=== PATIENT | male | born 1950 | race Caucasian/White ===

== ENCOUNTER → 2020-05-25 10:27 | Outpatient (BNVA) | payer MEDICARE, SELFPAY | PROVIDERS: Referring Provider Nurse Practitioner Family; Visit Provider Podiatrist Foot & Ankle Surgery | DX: L97.512 Non-pressure chronic ulcer of other part of right foot with fat layer exposed (principal); I73.9 Peripheral vascular disease, unspecified; L60.3 Nail dystrophy; M20.42 Other hammer toe(s) (acquired), left foot; M20.41 Other hammer toe(s) (acquired), right foot; M19.90 Unspecified osteoarthritis, unspecified site; M79.671 Pain in right foot | CPT/HCPCS: 73630 ==

== ENCOUNTER 2020-07-13 08:26 | Emergency (ER) | payer MEDICARE, SELFPAY ==
[2020-07-13] VITALS (8 sets, daily range): BP systolic 125–157; BP diastolic 71–76; PULSE 86–112; RESP 16–20; TEMP 36.7–37.1; O2SAT 76–96; BMI 33.0
--- NOTE | 2020-07-13 08:41 | XR_ITS ---
WS: [id number] Right hip, AP and frog leg views, AP pelvis, 07/13/2020 Clinical Data: trauma Comparison: None. Findings: There is a fracture of the right pubic symphysis without significant displacement. The right hip show s arthritic narrowing but there are no right hip fractures. There is an intramedullary bon in the pro ximal left femur. No left hip fractures are seen. The SI joints are normal. XR/XR hip RT 2-3V wo/w pel* [id number] Impression: 1. Fracture of right pubic symphysis. 2. Negative for right hip fracture.
--- NOTE | 2020-07-13 08:42 | XR_ITS ---
WS: [id number] Right arm and humerus, 2 views, 07/13/2020 Clinical Data: trauma Comparison: None. Findings: There is a mid shaft fracture of the right humerus. The visualized right elbow and shoulder joints ar e normal. There is lateral displacement of the distal humeral shaft.. XR/[place] [id number] Impression: Midshaft fracture right humerus.
--- NOTE | 2020-07-13 08:42 | XR_ITS ---
WS: [id number] Right shoulder, 3 views, 07/13/2020 Clinical Data: trauma; y view Comparison: None. Findings: There is a fracture of the midshaft of the right humerus. The right shoulder is intact. The AC joint shows osteoarthritis. The right scapula and right clavicle are unremarkable. There is chronic interstitial disease seen throughout the right lung. XR/XR shoulder RT min 2V* [id number] Impression: 1. Midshaft fracture right humerus. 2. Negative for right shoulder fracture or dislocation.
--- NOTE | 2020-07-13 08:43 | ED_ITS ---
HPI - Fall General: Chief Complaint: Extremity Injury, Upper Stated Complaint: FALL Time Seen by Provider: 07/13/20 08:28 Source: patient and family Mode of arrival: EMS Limitations: no limitations History of Present Illness: HPI Narrative: Patient is a very nice 70-year-old male who presents to ED today along with a family member for evaluation following a fall. Patient tells me he was on the step of a tractor pulling on a hinged door when the hinge came loose causing him to fall backwards onto his right side. Height of the fall was approximately 2 to 3 feet. He states he has not been ambulatory since the fall. He is complaining of pain around his right hip and right upper arm pain. He denies striking his head, LOC, neck or back pain. He denies any other injuries or pain at this time. MD complaint: fall Onset (ago): hour(s) Fall from: from height (distance) Fall witnessed: no Place fall occurred: home Prolonged down time: no Symptoms prior to fall: none Context: tripped/slipped Location of injury - extremities: Right: arm and thigh (hip) Severity: moderate Associated symptoms-after fall: Reports difficulty walking (secondary to R hip pain); Denies abdominal pain, chest pain, confusion, headache(s), lightheadedness, neck pain or vertigo Review of Systems Const: Denies: fever(s) or chills Eyes: Denies: change in vision, blurry vision, photophobia or floaters Card: Denies: chest pain, lightheadedness, syncope or pre-syncope Resp: Reports: dyspnea (chronic secondary to COPD; at baseline per patient) GI: Denies: abdominal pain, nausea or vomiting Musc: Reports: extremity pain (R upper arm pain), extremity swelling (R upper arm) and joint pain (R hip); Denies: neck pain, back pain, joint swelling or joint redness Skin/Breast: Reports: other (no abrasions/lacerations noted) Neuro: Reports: difficulty walking (secondary to R hip pain); Denies: headache(s), numbness in extremities, weakness in extremities, sensory changes, frequent falls, dizziness, vertigo, confusion or Slurred speech present [facility] ED PFSH: Medical History (Updated 07/13/20 @ 10:02 by ALEXANDRIA Petty) CHF (congestive heart failure) COPD (chronic obstructive pulmonary disease) Hypertension Social History Smoking and tobacco status: former smoker Alcohol intake: never Current occupational status: employed Physical Exam Const: COMMON NORMALS: no acute distress, patient oriented x3, no limitations, healthy appearing, alert and well nourished GENERAL APPEARANCE: cooperative ORIENTATION/CONSCIOUSNESS: Yes awake, Yes oriented to person, Yes oriented to place and Yes oriented to time OTHER: pt initially very hypoxic (76%) upon arrival but he normally wears 4L continous O2 and EMS did not have him on any oxygen in transport; he was placed on his normal 4L upon arrival and he increased to 90% which he states is his baseline HENMT: COMMON NORMALS: normocephalic and atraumatic HEAD & SCALP: normal to inspection, normocephalic and atraumatic FACE & SINUS: normal facial exam Eye: GENERAL EYE: appearance normal, both eyes and all related structures Neck/C-Spine: COMMON NORMALS: full ROM CERVICAL SPINE: Yes cervical ROM normal, No Cervical spine tenderness and No Paracervical muscle tenderness Chest: COMMONS NORMALS: normal inspection of the chest and normal palpation of entire chest wall Resp: COMMON NORMALS: normal respiratory effort and clear to auscultation bilaterally EFFORT & INSPECTION: Yes able to speak in complete sentences AUSCULTATION: clear to auscultation bilaterally OTHER: see initial assessment Cardio: COMMON NORMALS: regular rate and regular rhythm RATE: regular rate RHYTHM: regular rhythm GI: COMMON NORMALS: Normal to inspection, nondistended, normoactive bowel sounds present, Soft to palpation, non-tender, No hepatosplenomegaly present and no masses PALPATION: Yes Soft to palpation and Yes No hepatosplenomegaly present : COMMON NORMALS: Yes no CVA tenderness BLADDER/KIDNEY EXAM: Yes no CVA tenderness Back/Pelvis: COMMON NORMALS: no CVA tenderness, thoracic and lumbar spine normal to inspection, no thoracic nor lumbar tenderness and thoraco-lumbar ROM normal Extremity: GENERAL: Yes normal exam except as noted RIGHT UPPER EXTREMITY: Yes upper arm (TTP mid humerus, swelling noted; NV intact) RIGHT LOWER EXTREMITY: Yes hip joint (TTP anterior/lateral hip) Right hip: Yes ROM (limited secondary to pain) and Yes neurovascular exam (normal) Neuro: CHASE COMA SCALE: document GCS findings [place] coma scale eye opening: Spontaneous [place] coma scale verbal response: Orientated [place] coma scale motor response: Obey commands [place] coma scale total score: 15 COMMON NORMALS: patient oriented x3 SENSORIUM/ORIENTATION: Yes alert, Yes oriented to person, Yes oriented to place and Yes oriented to time Skin: COMMON NORMALS: no rashes or lesions noted GENERAL SKIN EXAM: no rashes or lesions noted Course Consultations: Consultation #1: Dr. Zamudio-recommends sugar tong splint to upper arm and will see in office early next week Vital Signs: Vital signs: Vital Signs Temperature 98.7 F 07/13/20 13:36 Pulse Rate 86 07/13/20 13:36 Respiratory Rate 20 H 07/13/20 13:36 Blood Pressure 125/71 07/13/20 13:36 Pulse Oximetry 93 07/13/20 13:36 MDM - Fall MDM Narrative: Medical decision making narrative: Patient is not able to be ambulatory at this time secondary to his right pubic symphysis fracture along with his transverse midshaft humeral fracture. Patient is wanting to go home. He will be given a wheelchair prior to discharge. He has several family members that will be able to help care for him. Some of the caregivers work for [employer] and are working on getting patient a bedside commode as well as a hand-held shower. I have spoken to Dr. Zamudio who will see patient on Friday for evaluation. Return to ED precautions given. Imaging Data^: XR R hip/pelvis: Radiologist's impression: [place] [address] XRay Report Signed Patient: Abelardo Snyder Unit #: [id number] : 1950 Age/Sex: 70 / M ADM Date: 07/13/20 Loc: ER Room/Bed: Attending Dr: Ordering Provider/Ordering MD: Lorenza Patel Date of Service: 07/13/20 Procedure(s): XR hip RT 2-3V wo/w pel* [id number] Accession Number(s): [id number] Report Number: [id number] WS: [id number] Right hip, AP and frog leg views, AP pelvis, 07/13/2020 Clinical Data: trauma Comparison: None. Findings: There is a fracture of the right pubic symphysis without significant displacement. The right hip shows arthritic narrowing but there are no right hip fractures. There is an intramedullary bon in the proximal left femur. No left hip fractures are seen. The SI joints are normal. XR/XR hip RT 2-3V wo/w pel* 36081 Impression: 1. Fracture of right pubic symphysis. 2. Negative for right hip fracture. Dictated By: Michelle Reyez MD Signed By: Michelle Reyez MD Signed Date/Time: 07/13/20921 DD/ 9 XR R humerus: Radiologist's impression: [place] [address] XRay Report Signed Patient: Abelardo Snyder Unit #: [id number] : 1950 Age/Sex: 70 / M ADM Date: 07/13/20 Loc: ER Room/Bed: Attending Dr: Ordering Provider/Ordering MD: Lorenza Patel Date of Service: 07/13/20 Procedure(s): [place] [address] Accession Number(s): [id number] Report Number: [id number] WS: [id number] Right arm and humerus, 2 views, 07/13/2020 Clinical Data: trauma Comparison: None. Findings: There is a mid shaft fracture of the right humerus. The visualized right elbow and shoulder joints are normal. There is lateral displacement of the distal humeral shaft.. XR/[place] [id number] Impression: Midshaft fracture right humerus. Dictated By: Michelle Reyez MD Signed By: Michelle Reyez MD Signed Date/Time: 07/13/20919 DD/ 8 XR R shoulder: Radiologist's impression: [address] [address] XRay Report Signed Patient: Abelardo Snyder Unit #: [id number] : 1950 Age/Sex: 70 / M ADM Date: 07/13/20 Loc: ER Room/Bed: Attending Dr: Ordering Provider/Ordering MD: Lorenza Patel Date of Service: 07/13/20 Procedure(s): XR shoulder RT min 2V* [id number] Accession Number(s): [id number] Report Number: [id number] WS: [id number] Right shoulder, 3 views, 07/13/2020 Clinical Data: trauma; y view Comparison: None. Findings: There is a fracture of the midshaft of the right humerus. The right shoulder is intact. The AC joint shows osteoarthritis. The right scapula and right clavicle are unremarkable. There is chronic interstitial disease seen throughout the right lung. XR/XR shoulder RT min 2V* [id number] Impression: 1. Midshaft fracture right humerus. 2. Negative for right shoulder fracture or dislocation. Dictated By: Michelle Reyez MD Signed By: Michelle Reyez MD Signed Date/Time: 07/13/20930 DD/ 9 Discharge Plan Discharge Patient Disposition: Home Clinical Impression: Closed fracture of shaft of right humerus Closed fracture of right side of symphysis pubis Qualifiers: Encounter type: initial encounter Qualified Code(s): S32.591A - Other specified fracture of right pubis, initial encounter for closed fracture Closed right humeral fracture Qualifiers: Encounter type: initial encounter Humerus Location: shaft Fracture morphology: transverse Fracture alignment: displaced Qualified Code(s): S42.321A - Displaced transverse fracture of shaft of humerus, right arm, initial encounter for closed fracture Condition: Good Prescriptions: New hydrocodone-acetaminophen 7.5-325 mg tablet 1 tab PO Q4H PRN (Reason: pain) Qty: 20 RF: 0 No Action aspirin 81 mg tablet,delayed release (DR/EC) 81 mg PO DAILY RF: 0 diltiazem HCl [Cartia XT] 240 mg capsule,extended release 24hr 240 mg PO DAILY RF: 0 clindamycin HCl 300 mg capsule 300 mg PO TID RF: 0 furosemide [Lasix] 20 mg tablet 20 mg PO DAILY RF: 0 potassium chloride 10 mEq tablet extended release 10 meq PO DAILY RF: 0 tadalafil 20 mg tablet 40 mg PO DAILY RF: 0 prednisone 5 mg tablet 5 mg PO DAILY RF: 0 lisinopril 2.5 mg tablet 2.5 mg PO DAILY RF: 0 mupirocin 2 % ointment 1 applic TOPICAL BID Qty: 30 RF: 0 doxycycline hyclate 100 mg capsule 100 mg PO BID Qty: 28 RF: 0 Discharge Orders: Discharge Order (Routine); Ordered 07/13/20 Ordered By: Lorenza Patel Referrals: Maricruz Zamudio MD [Physician] - Activity Restrictions/Additional Instructions: As discussed he will follow-up with Dr. Zamudio next week for reevaluation. You need to accept help from your family members for transferring from your wheelchair to bedside commode/toilet and help with showering. You may use pain medications as directed to help with pain. Return to the emergency department for worsening pain, inability to care for yourself, any other new complaints, or any other concerns you may have. Discharge Date/Time: 07/13/20 13:45 Coding Level of Care Code ED Certified Alcohol And Drug Counselor for Alejandra Fwd Exam Comprehensive
[2020-07-13] MEDS: morphine 4 mg/mL SDV 1 mL IM (08:57)
[2020-07-13] MEDS: ondansetron 2 mg/ML SDV 2 mL 4 MG IM (08:59)
--- NOTE | 2020-07-13 10:35 | DCPLANNER ---
manager disaster recovery was asked to schedule a follow up appointment for patient with ortho. manager disaster recovery called the ortho clinic, spoke with Pat, gave clinic patients information. A follow up appointment was scheduled for Friday, July 17, [address] at 9:[address] Zamudio. manager disaster recovery gave ED physician and patient the appointment information.
[2020-07-13] MEDS: HYDROmorphone 1 mg/mL INJ 1 mL SUBCUT (12:17)
--- NOTE | 2020-07-22 09:17 | DCPLANNER ---
Patient had a follow up appointment scheduled for 07.17.20 with ortho - patient did not attend appointment.
== END 2020-07-13 13:45 | disposition home or self-care (01) ==
PROVIDERS: Emergency Provider Physician Assistant
DX: S42.321A Displaced transverse fracture of shaft of humerus, right arm, initial encounter for closed fracture (principal); S32.591A Other specified fracture of right pubis, initial encounter for closed fracture; Z79.82 Long term (current) use of aspirin; I11.0 Hypertensive heart disease with heart failure; I50.9 Heart failure, unspecified; J44.9 Chronic obstructive pulmonary disease, unspecified; Z87.891 Personal history of nicotine dependence; W17.89XA Other fall from one level to another, initial encounter
CPT/HCPCS: 12345; 29125; 73030; 73060; 73502; 96372; 99282; 99283; J1170; J2270; J2405